=== PATIENT | female | born 1995 | race Caucasian/White ===

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

== ENCOUNTER 2017-02-21 09:37 | Emergency (ER) | payer MEDICAID, OTHER ==
--- NOTE | 2017-02-21 09:59 | ERNOTE ---
Psychological HPI - General Chief Complaint: Psychiatric Problem Source: Reports: patient Exam Limitations: Reports: no limitations - Immun/Allergies/Home Medications Allergies/Adverse Reactions: Allergies amoxicillin [Amoxicillin] Allergy (Severe, Verified 02/21/17 09:44) Hives meloxicam Allergy (Verified 02/21/17 09:44) Home Medications: HOME MEDICATIONS ARIPiprazole [Abilify] 5 mg PO DAILY 02/21/17 [Last Taken Unknown] clonazePAM [Klonopin] 0.25 mg PO BID PRN 02/21/17 [Last Taken Unknown] - History of Present Illness Narrative: Patient states that she has been struggling with depression since the of her son approximately 12 weeks ago. She has been seeing psychiatric services out of [place] and they have started her on several medications which don't seem to be working very well. Patient is frustrated, tearful and out of this generalized state patient took 4 of her 0.5 mg Klonopin she thinks possibly in an attempt to help her with her depression. Patient does not admit to being suicidal however her thinking appears to be somewhat disorganized. Time Seen by Provider: 02/21/17 09:47 Arrived by: Reports: private car Onset/duration: Reports: gradual onset Intent: Reports: no answer Mechanism: Reports: ingestion - more than the prescribed amount of her Klonopin Situational Problems: Reports: other - Associated Symptoms: Reports: depressed Prior Treament: Reports: recently seen, treated by physician Review of Systems - Review of Systems Constitutional: Present: See HPI EYE: Present: no symptoms reported ENT: Present: no symptoms reported Respiratory: Present: no symptoms reported Cardiology: Present: no symptoms reported Gastrointestinal/Abdominal: Present: no symptoms reported Genitourinary: Present: no symptoms reported Musculoskeletal: Present: no symptoms reported Skin: Present: no symptoms reported Neurological: Present: no symptoms reported Endocrine: Present: no symptoms reported Hematologic/Lymphatic: Present: no symptoms reported Psych: Present: See HPI - Patient's Past Medical History Patient History - Medical: No pertinent hx, Other - depression Patient History - Cardiac/Respiratory: Asthma Patient History - Cancer: No Hx of Cancer Patient History - Surgical Procedures: T & A Patient History - Other: None - Family History Mother Family History - Medical: Other Father Family History - Medical: No pertinent hx Family History - Cardiac/Respiratory: Hypertension, Hyperlipidemia - Social History Living Situations: home Abuse History: No History of abuse Psych History: Hx of Depression - Immunizations Immunizations Up to Date: No - unsure Hx Pneumococcal Vaccination: No History of Influenza Vaccine: No Psychological Exam - Exam General Appearance: Present: wd/wn, alert, moderate distress Head Exam: Present: normal inspection, no evidence of injury Neurological: Present: depressed affect Thoughts/Hallucinations: Present: no apparent hallucination Behavior/Eye Contact/Speech: Present: avoids eye contact, other - tearful ENT Exam normal except (see below): Yes Ears, Nose, Throat: Present: normal ENT inspection Neck: Present: normal inspection, nontender Respiratory: Present: no respiratory distress, normal breath sounds, no accessory muscle use, chest nontender, lungs clear Cardiovascular/Chest: Present: regular rate, rhythm, no murmur, normal peripheral pulses Gastrointestinal/Abdominal: Present: normal bowel sounds, nontender, nondistended, soft, no organomegaly Rectal Exam: Present: deferred Pelvic Exam: Present: deferred Back Exam: Present: normal inspection Extremity Exam: Present: normal inspection Skin Exam: Present: normal color Lymphatic Exam: Present: no adenopathy ED Progress - Results and Orders Patient's Lab Results:: I have reviewed the patient's lab results. - Vital Signs Patient's Vital Signs:: I have reviewed the patient's vital signs. Vital Signs: Vital Signs 02/21/17 09:40 Temperature 36.6 C Pulse Rate 108 H Respiratory 12 Rate Blood Pressure 109/69 O2 Sat by Pulse 100 Oximetry - Progress/Reassessment Chief Complaint: Psychiatric Problem Plan - Plan Plan: Patient admits to drinking a fairly large amount of alcohol last night and that appeared to make her depression worse. Patient denies being suicidal and does admit to trying to use alcohol to help with her depression. He had a good discussion with both the patient and her boyfriend who is also the baby daddy and he agrees to stay with the patient today, which will be easy since they live together. Patient will call her psychiatrist tomorrow in [facility] and try to discuss other treatment regimens other than alcohol. Departure Clinical Impression: Post depression Alcohol intoxication Qualifiers: Complication of substance-induced condition: uncomplicated Qualified Code(s): F10.920 - Alcohol use, unspecified with intoxication, uncomplicated - Departure Disposition: Home self-care Condition: Good Instructions: Alcohol Use Disorder, Alcohol Intoxication, [id number], Dysphoria Additional Instructions: Call your psychiatrist in the morning to discuss treatment options
[2017-02-21 10:14] LABS: Hematocrit 41.6 % (37.0-47.0); Hemoglobin 14.1 gm/dL (12.5-16.0); Mean Corpuscular Hemoglobin 29.5 pg (27-31); Mean Corpuscular Hgb Conc 33.9 g/dl (32-36); Neutrophil # 2.8 K/mm3 (1.3-6.0); Platelet Count 212 K/mm3 (150-450); Red Blood Count 4.78 M/mm3 (4.2-5.4); Red Cell Distribution Width 12.7 % (11.5-14.0); White Blood Count 5.6 K/mm3 (4.0-10.5)
[2017-02-21 10:28] LABS: ALT 12 U/L (19-67); AST 12 U/L (0-48); Albumin * 4.2 gm/dl (3.4-5.0); Alkaline Phosphatase * 73 U/L (50-170); Anion Gap 16.5 mmol/L (6.8-13.8); BUN/Creatinine Ratio 10.1 (9.0-21.6); Bilirubin, Total 0.5 mg/dL (0.0-1.1); Blood Urea Nitrogen 7 mg/dL (3-23); Ca. Corrected For Albumin 8.3 mg/dL (8.4-10.2); Calcium * 8.8 mg/dL (7.9-10.9); Carbon Dioxide 25.2 mmol/L (24-32.6); Chloride 108 mmol/L (97-106); Glucose * 89 mg/dL (70-110); Potassium 3.7 mmol/L (3.4-4.6); Salicylate 3.9 mg/dL (2.8-20.0); Sodium 146 mmol/L (132-142); Total Protein 7.1 gm/dL (6.2-8.2)
[2017-02-21 10:37] LABS: Urine Appearance Clear; Urine Color Yellow
[2017-02-21 10:38] LABS: Urine Bacteria None Seen; Urine Bilirubin Negative (NEGATIVE); Urine Blood Negative /ul (NEGATIVE); Urine Ketone Negative (NEGATIVE); Urine Nitrite Negative (NEGATIVE); Urine Protein Negative (NEGATIVE); Urine RBC None Seen /hpf (0-5); Urine Urobilinogen Normal (NORMAL); Urine WBC 0-5 /hpf (0-5)
[2017-02-21 10:44] LABS: Cocaine Ur Negative (NEGATIVE); Urine Barbiturate Negative (NEGATIVE); Urine Benzodiazepines Negative (NEGATIVE); Urine Opiates Negative (NEGATIVE); Urine PCP Negative (NEGATIVE); Urine THC Negative (NEGATIVE)
[2017-02-21 11:07] VITALS: BP 111/63
== END 2017-02-21 11:05 | disposition home or self-care (01) ==
LOC: ER 09:37
DX: F53 Mental and behavioral disorders associated with the puerperium, not elsewhere classified (principal); F10.920 Alcohol use, unspecified with intoxication, uncomplicated
CPT/HCPCS: 36415; 80053; 80307; 81001; 83735; 84703; 85025; 99282; G0480; G0481

== ENCOUNTER 2017-04-04 17:33 | Emergency (ER) | payer SELFPAY ==
[2017-04-04 17:40] VITALS: BP 115/64
[2017-04-04] MEDS ORDERED: PANTOPRAZOLE SODIUM 40 MG in NORMAL SALINE 100 ML IV ONE (17:58)
[2017-04-04 18:00] LABS: Hematocrit 41.6 % (37.0-47.0); Hemoglobin 13.8 gm/dL (12.5-16.0); Mean Cell Volume 86.7 fl (78-100); Mean Corpuscular Hemoglobin 28.8 pg (27-31); Mean Corpuscular Hgb Conc 33.2 g/dl (32-36); Mean Platelet Volume 11.4 fl (6.0-9.5); Neutrophil # 5.4 K/mm3 (1.3-6.0); Neutrophil % 59.2 % (42-75.0); Platelet Count 222 K/mm3 (150-450); White Blood Count 9.1 K/mm3 (4.0-10.5)
--- NOTE | 2017-04-04 18:03 | ERNOTE ---
GI Bleeding/Rectal Pain ER Date of Service: 04/04/17 Presenting Symptoms: rectal bleeding Time Seen by Provider: 04/04/17 17:41 Source: patient Exam Limitations: no limitations Immunizations: IMMUNIZATION HX Immunizations Up to Date No: unsure History of Influenza Vaccine No Hx Pneumococcal Vaccination No Allergies/Adverse Reactions: Allergies amoxicillin [Amoxicillin] Allergy (Severe, Verified 04/04/17 17:40) Hives meloxicam Allergy (Verified 04/04/17 17:40) Home Medications: HOME MEDICATIONS ARIPiprazole [Abilify] 5 mg PO DAILY 02/21/17 [Last Taken Unknown] clonazePAM [Klonopin] 0.25 mg PO BID PRN 02/21/17 [Last Taken Unknown] Narrative: Pt is a 21 year old female who presents with complaints of passing clots per rectum and intermittent abdominal pain which began yesterday evening. She reports she has symptoms like this before 4 years ago and was diagnosed with "ulcers" however no workup was completed such as a EGD or colonoscopy. Her abdominal pain is mid umbilicus and radiates left and right, cramping in nature , and has progressively gotten worse since last night. Nothing makes her pain better, however smoking does make it worse. She also endorses lightheadedness, but denies CP, dysuria, n/v/d, SOB, any episodes of syncope, recent trauma, , denies possible . She did not take anything for her symptoms prior to arrival. Date (Duration): 04/04/17 Time (Timing): 17:53 Timing: getting worse, intermittent Quality/Severity: Present: moderate, cramping Date of Last Bowel Movement: 04/03/17 - streaked with maroon blood and clots present Nausea/Vomiting: Present: blood streaked Abdominal Pain: Present: periumbilical Rectal Bleeding: Present: blood streaks on stool, other - clots Associated Symptoms: Reports: maroon stools, light headedness Prior Treament: Reports: similar symptoms before Review of Systems - Review of Systems Constitutional: Present: fatigue, weight loss ENT: Present: no symptoms reported Respiratory: Present: no symptoms reported Cardiology: Present: no symptoms reported Gastrointestinal/Abdominal: Present: abdominal pain. Absent: nausea, vomiting, diarrhea Genitourinary: Present: no symptoms reported Neurological: Present: dizziness/light-headedness Endocrine: Present: no symptoms reported - Patient's Past Medical History Patient History - Medical: No pertinent hx, Other - "ulcers" per pt Patient History - Cardiac/Respiratory: Asthma Patient History - Cancer: No Hx of Cancer Patient History - Surgical Procedures: T & A Patient History - Other: None - Family History Mother Family History - Medical: Other Father Family History - Medical: No pertinent hx Family History - Cardiac/Respiratory: Hypertension, Hyperlipidemia - Social History Living Situations: home Abuse History: No History of abuse Psych History: Hx of Depression Alcohol Use: none Drug Use: none - Immunizations Immunizations Up to Date: No - unsure Hx Pneumococcal Vaccination: No History of Influenza Vaccine: No Physical Exam - Physical Exam General Appearance: Present: wd/wn, alert, no apparent distress Head Exam: Present: normal inspection, no evidence of injury Respiratory: Present: no respiratory distress, normal breath sounds, no accessory muscle use, chest nontender, lungs clear Cardiovascular/Chest: Present: regular rate, rhythm, no murmur, normal peripheral pulses Gastrointestinal/Abdominal: Present: normal bowel sounds, nontender, nondistended, soft, no organomegaly Back Exam: Present: normal inspection Extremity Exam: Present: normal inspection, non-tender, normal range of motion, no edema Neurological Exam: Present: alert, oriented, normal mood/affect, no motor/ sensory deficits Skin Exam: Present: normal color, warm/dry ED Progress - Results and Orders Patient's Lab Results:: I have reviewed the patient's lab results. - Vital Signs Patient's Vital Signs:: I have reviewed the patient's vital signs. Vital Signs: Vital Signs 04/04/17 04/04/17 17:36 17:41 Temperature 36.3 C L 36.3 C L Pulse Rate 66 66 Respiratory 12 12 Rate Blood Pressure 115/64 115/64 O2 Sat by Pulse 100 100 Oximetry - Progress/Reassessment Chief Complaint: GI Bleed Progress:: Unchanged Progress Note-Subjective: 04/04/17 18:08 Pt refused rectal examination with occult stool testing. Risk and benefits were explained to patient which included unidentifiable rectal bleeding which could results in life threatening hemorrhages. She verbalized understanding. Laboratory findings were unremarkable, h/h stable. Last BM was yesterday evening. Upon my assessment she did not have any abdominal pain. She also refuses to provide a urine sample. Vital signs were stable, there was no evidence of tachycardia or hypotension. She will receive 40mg PO of Protonix prior to DC with instructions to return if symptoms worses and to follow up with her PCP for further testing if problems persist. Departure Clinical Impression: Dizziness GIB (gastrointestinal bleeding) Qualifiers: GI bleed type/associated pathology: unspecified gastrointestinal hemorrhage type Qualified Code(s): K92.2 - Gastrointestinal hemorrhage, unspecified Abdominal pain Qualifiers: Abdominal location: periumbilical Qualified Code(s): R10.33 - Periumbilical pain - Departure Disposition: Home self-care Condition: Good Instructions: Gastrointestinal Bleeding, [id number], Dizziness, [id number] Additional Instructions: You have been diagnosed with a suspected GI bleed. As discussed we cannot fully conclude this due to not completing a rectal examination or testing stool sample for blood. Your laboratory findings do not appear to show that you have had a significant blood loss. Avoid spicy or acidic foods, coffee, and smoking as these can aggravate the intestines. You can take an over the counter PPI to alleviate symptoms Please follow up with you PCP for further work up if pain continues. You have been provided an order for an occult stool you can bring to outpt for further testing. Increase fluid intake. If you experience increased or continued bleeding, chest pain, shortness of breath, or pass out-please come back to ER.
[2017-04-04] MEDS ORDERED: PANTOPRAZOLE SODIUM 40 MG TABLET.EC PO ONE (18:12)
[2017-04-04] MEDS ORDERED: PANTOPRAZOLE SODIUM 40 MG TABLET.EC ONE (18:13)
[2017-04-04 18:14] LABS: Albumin * 3.9 gm/dl (3.4-5.0); Anion Gap 9.8 mmol/L (6.8-13.8); BUN/Creatinine Ratio 10.8 (9.0-21.6); Bilirubin, Total 0.7 mg/dL (0.0-1.1); Ca. Corrected For Albumin 8.7 mg/dL (8.4-10.2); Calcium * 8.9 mg/dL (7.9-10.9); Carbon Dioxide 29.7 mmol/L (24-32.6); Potassium 3.5 mmol/L (3.4-4.6); Total Protein 6.6 gm/dL (6.2-8.2)
[2017-04-04 18:23] LABS: INR 1.2 INR (0.90-1.10); Partial Thrombolplastin Time 29.2 Seconds (24-32)
== END 2017-04-04 18:50 | disposition home or self-care (01) ==
LOC: ER 17:33
DX: K92.2 Gastrointestinal hemorrhage, unspecified (principal); R42 Dizziness and giddiness; R10.33 Periumbilical pain; F32.9 Major depressive disorder, single episode, unspecified

== ENCOUNTER 2018-04-04 01:59 | Inpatient (IN) ==
[2018-04-04] MEDS ORDERED: BETAMETHASONE ACETATE,SOD PHOS 6 MG/ML VIAL IM ONE ×2 (03:16)
[2018-04-04] MEDS ORDERED: TERBUTALINE SULFATE 1 MG/ML VIAL SC ONE (03:16)
[2018-04-04 03:27] LABS: Urine Appearance Clear (CLEAR); Urine Bilirubin Negative (NEGATIVE); Urine Blood Negative /ul (NEGATIVE); Urine Color Yellow; Urine Ketone Negative (NEGATIVE); Urine Specific Gravity <=1.005 SP.GR. (1.005-1.010)
[2018-04-04 03:28] LABS: Urine Bacteria None Seen; Urine Nitrite Negative (NEGATIVE); Urine Protein Negative (NEGATIVE); Urine RBC None Seen /hpf (0-5); Urine Urobilinogen Normal (NORMAL); Urine WBC None Seen /hpf (0-5); Urine pH 6.5 pH (5.0-7.0)
--- NOTE | 2018-04-04 04:33 | HP ---
Chief Complaint - Chief Complaint Date of Service: 04/04/18 Time of Service: 04:15 Chief Complaint: contractions History of Present Illness: Fair historian 22yo at 35 2/7 wks presents to L&D complaining of contractions of increasing frequency and intensity over the past several hours. Upon presentation her cervix was 1/70/ballotable and changed to 2/70/-3 within one hour. SHe continues to contract q 2-3 min with no relief despite one dose of terbutaline 0.25mg. She had a negative GBS culture done on 03/30/18 and received one dose of betamethasone 12mg IM at 0330 today. This complicated by ADHD, anxiety, asthma (uncomplicated), bipolar d/o, depression (sertraline 25mg/d), PTL, tobacco abuse. 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/19/13 Chronic knee pain Onset Date: 01/09/13 with effusion- Left Depression Onset Date: 08/26/12 Oppositional defiant behavior Onset Date: Unknown Patella-femoral syndrome Onset Date: Unknown left Pneumonia Onset Date: ~2001 Thrombocytopenia affecting Onset Date: 08/03/16 Vulvovaginal candidiasis Onset Date: 09/26/12 [place] teeth extracted Onset Date: Unknown Surgical History: Surgical History (Last Reviewed 04/04/18 @ 04:24 by Zeus Buck DO) History of tonsillectomy Onset Date: Unknown Family History: Family History (Last Reviewed 04/04/18 @ 04:24 by Zeus Buck DO) Mother Seasonal allergic rhinitis Father Family history unknown Grandmother COPD (chronic obstructive pulmonary disease) Maternal Endometriosis Maternal Grandfather , Maternal Stage 3 chronic kidney disease COPD (chronic obstructive pulmonary disease) Brother Seasonal allergic rhinitis Asthma Social History: Preferred Language Mauritanian Smoking Status Current every day smoker Abuse History No History of abuse Psych History Hx of Depression,Hx of Bipolar Disorder,Hx of Suicide Attempt (Last Updated 03/31/18 @ 18:10 by Yeimy Greer MD) No Social History Section defined Review Of Systems (GEN) - Review of Systems Generalized/Overall Review: Present: No Symptoms Reported EENTM: Present: No Symptoms Reported Respiratory: Present: No Symptoms Reported Cardiac: Present: No Symptoms Reported Abdominal: Present: Other - contractions Genitourinary: Present: Other - increased vaginal discharge Musculoskeletal: Present: No Symptoms Reported Neurological: Present: Anxiety, Emotional Problems Skin: Present: No Symptoms Reported Endocrine: Present: No Symptoms Reported Immunizations: IMMUNIZATION HX Immunizations Up to Date Yes History of Influenza Vaccine No Hx Pneumococcal Vaccination No Allergies/Adverse Reactions: Allergies Allergy/AdvReac Type Severity Reaction Status Date / Time amoxicillin [Amoxicillin] Allergy Intermediate Hives Verified 03/31/18 14:27 meloxicam Allergy Intermediate Hives Verified 03/31/18 14:27 Home Medications: HOME MEDICATIONS lurasidone 20 mg tablet 20 mg PO QPM #30 tab 11/17/17 [Last Taken 04/02/18 21:00] [id number] 400 mcg-om3 35 mg-dha 25 mg-epa 5 mg-fish oil chewable tablet 2 tab PO DAILY tab 12/14/17 [Last Taken 04/02/18 21:00] sertraline 25 mg tablet 100 mg PO DAILY tab 01/11/18 [Last Taken 04/02/18 21:00] ferrous sulfate 325 mg (65 mg iron) tablet 325 mg PO DAILY #30 tab 02/08/18 [Last Taken 04/02/18 21:00] Exam - Exam Vital Signs: Vital Signs - Last Taken Temp 37.0 C 04/04/18 04:02 Pulse 108 H 04/04/18 04:02 Resp 16 04/04/18 04:02 BP 120/65 04/04/18 04:02 Pulse Ox 100 04/04/18 04:02 Constitutional: Present: Alert, Oriented x3, Cooperative, Mild distress - anxious ENT Exam: Present: hearing grossly normal Breasts: Present: Exam deferred Respiratory: Present: lungs clear, no respiratory distress Cardiovascular/Chest: Present: normal peripheral pulses, regular rate, rhythm, no edema Abdomen: Present: soft, nontender, no rebound tenderness, other - gravid /Rectal: Present: Other - cervix 2/70/-3 Extremity: Present: non-tender, no pedal edema, no calf tenderness Skin Exam: Present: normal color, warm/dry, no cyanosis Lymphatic: Present: no adenopathy Neurologic: Present: alert, oriented x 3, other - anxious Appearance: Present: appropriate appearance, appropriate insight Eye contact: Present: cooperative, good eye contact, normal speech Thoughts: Present: normal thought pattern Diagnostic Studies: Laboratory Results Urine Color Yellow 04/04/18 03:22 Urine Appearance Clear (CLEAR) 04/04/18 03:22 Urine pH 6.5 pH (5.0-7.0) 04/04/18 03:22 Ur Specific [place] <=1.005 SP.GR. (1.005-1.010) 04/04/18 03:22 Urine Protein Negative mg/dL (NEGATIVE) 04/04/18 03:22 Urine Glucose (UA) Negative mg/dL (NEGATIVE) 04/04/18 03:22 Urine Ketones Negative mg/dL (NEGATIVE) 04/04/18 03:22 Urine Blood Negative /ul (NEGATIVE) 04/04/18 03:22 Urine Nitrate Negative (NEGATIVE) 04/04/18 03:22 Urine Bilirubin Negative mg/dl (NEGATIVE) 04/04/18 03:22 Urine Urobilinogen Normal EU/dl (NORMAL) 04/04/18 03:22 Ur Leukocyte Esterase Negative /ul (NEGATIVE) 04/04/18 03:22 Urine RBC None seen /hpf (0-5) 04/04/18 03:22 Urine WBC None seen /hpf (0-5) 04/04/18 03:22 Ur Epithelial Cells Trace /hpf (0-5) 04/04/18 03:22 Urine Bacteria None seen (NONE) 04/04/18 03:22 Bedside ultrasound - cephalic presentation NST reactive Assessment/Plan - Assessment/Plan (1) labor Problem: Acute Qualifiers: labor trimester: third trimester Fetus number: single or unspecified fetus (2) Depression affecting Problem: Acute (3) Bipolar disorder Problem: Acute
[2018-04-04] MEDS ORDERED: DEXTROSE 5%-LACTATED RINGERS 1,000 ML IV PRN (04:41)
[2018-04-04] MEDS ORDERED: NIFEdipine 10 MG CAPSULE PO SCH (05:00)
[2018-04-04 05:02] VITALS: BP 113/55
[2018-04-04 05:14] LABS: Cocaine Ur Negative (NEGATIVE); Urine Barbiturate Negative (NEGATIVE); Urine Benzodiazepines Negative (NEGATIVE); Urine Opiates Negative (NEGATIVE); Urine PCP Negative (NEGATIVE); Urine THC Negative (NEGATIVE)
--- NOTE | 2018-04-04 06:58 | PN ---
Progess Note - Interim Date: 04/04/18 Time: 06:54 Narrative: 04/04/18 06:54 Plan was to transfer patient to [facility] but no ambulance was available for transport. The soonest one available was about 2-3 hours out. By the time one was available patient was 3cm but had stopped ranjana. Recheck one hour later, cervix was 4-5cm. Because of the advanced dilation, multiparous with infant, and rapid changing cervix transport was cancelled. Will manage expectantly, try to get 2nd dose of betamethasone, and notify peds.
[2018-04-05] MEDS ORDERED: BETAMETHASONE ACETATE,SOD PHOS 6 MG/ML VIAL IM ONE (03:30)
== END 2018-04-04 10:40 | disposition left against medical advice (07) | DRG 833 ==
LOC: OB 01:59 → OBCLINIC 01:59
PROVIDERS: ADMIT Obstetrics & Gynecology; ATTEND Obstetrics & Gynecology
CPT/HCPCS: 59025; 80307; 81001

== ENCOUNTER 2018-04-04 21:26 | Inpatient (IN) ==
--- NOTE | 2018-04-04 20:56 | HP ---
Chief Complaint - Chief Complaint Date of Service: 04/04/18 Time of Service: 20:30 Chief Complaint: worsening contractions History of Present Illness: Updated H&P. 22 yo at 35 2/7 wks admitted earlier this am for PTL left late morning (104 5) against medical advise. She called at 1812 complaining of increased pain and frequency of contractions and returned to hospital. She was readmitted and cervical exam remained unchanged from this am (4-5/70/-3). The nurse had trouble picking up FHT so I performed a bedside ultrasound which revealed an intermittent tach-arrhythmia. [facility], Dr. Gina Villa, was consulted and a video clip was sent to her. With the limited information she had, she felt the best thing to do was deliver the baby before it became compromised and so the cinder crane operator could treat the arrhythmia if needed. I discussed the plan with tourist information assistant cinder crane operator, Dr. Michael Nicolas. We will proceed with induction of labor. Transportion of mother/baby to [facility] was again intertained but with her advanced dilation it was felt the safest option was to deliver then transport baby if need be. Air transport is unavailable due to weather conditions. Patient denies using any drugs or medications since leaving AMA this morning other than smoking a couple cigarettes. Repeat UDS obtained. S/P one dose of betamethasone 12mg IM at 0330 this am. Rh positive Rubella immune GBS negative Medical History (Last Reviewed 04/04/18 @ 20:48 by Zeus Buck DO) Anemia affecting (Acute) Onset Date: 02/08/18 ADHD Onset Date: ~2012 Allergic rhinitis Onset Date: Unknown Asthma Onset Date: Unknown exercise induced Body piercing Chlamydia infection Onset Date: ~01/2016 Tattoos Anxiety Onset Date: Unknown Bipolar 1 disorder Onset Date: Unknown Borderline personality disorder Onset Date: Unknown Chondromalacia, patella Onset Date: 01/19/13 Chronic knee pain Onset Date: 01/09/13 with effusion- Left Depression Onset Date: 08/26/12 Oppositional defiant behavior Onset Date: Unknown Patella-femoral syndrome Onset Date: Unknown left Pneumonia Onset Date: ~2001 Thrombocytopenia affecting Onset Date: 08/03/16 Vulvovaginal candidiasis Onset Date: 09/26/12 [place] teeth extracted Onset Date: Unknown Surgical History: Surgical History (Last Reviewed 04/04/18 @ 20:48 by Zeus Buck DO) History of tonsillectomy Onset Date: Unknown Family History: Family History (Last Reviewed 04/04/18 @ 20:48 by Zeus Buck DO) Mother Seasonal allergic rhinitis Father Family history unknown Grandmother COPD (chronic obstructive pulmonary disease) Maternal Endometriosis Maternal Grandfather , Maternal Stage 3 chronic kidney disease COPD (chronic obstructive pulmonary disease) Brother Seasonal allergic rhinitis Asthma Social History: Preferred Language Berm[place]ian Smoking Status Current every day smoker Abuse History No History of abuse Psych History Hx of Depression,Hx of Bipolar Disorder,Hx of Suicide Attempt (Last Updated 03/31/18 @ 18:10 by Yeimy Greer MD) No Social History Section defined Review Of Systems (GEN) - Review of Systems Generalized/Overall Review: Present: No Symptoms Reported EENTM: Present: No Symptoms Reported Respiratory: Present: No Symptoms Reported Cardiac: Present: No Symptoms Reported Abdominal: Present: Other - contractions Genitourinary: Present: Other - vaginal pressure Musculoskeletal: Present: No Symptoms Reported Neurological: Present: No Symptoms Reported Skin: Present: No Symptoms Reported Endocrine: Present: No Symptoms Reported Immunizations: IMMUNIZATION HX Immunizations Up to Date Yes History of Influenza Vaccine No Hx Pneumococcal Vaccination No Allergies/Adverse Reactions: Allergies Allergy/AdvReac Type Severity Reaction Status Date / Time amoxicillin [Amoxicillin] Allergy Intermediate Hives Verified 03/31/18 14:27 meloxicam Allergy Intermediate Hives Verified 03/31/18 14:27 Home Medications: HOME MEDICATIONS lurasidone 20 mg tablet 20 mg PO QPM #30 tab 11/17/17 [Last Taken 04/02/18 21:00] [id number] 400 mcg-om3 35 mg-dha 25 mg-epa 5 mg-fish oil chewable tablet 2 tab PO DAILY tab 12/14/17 [Last Taken 04/02/18 21:00] sertraline 25 mg tablet 100 mg PO DAILY tab 01/11/18 [Last Taken 04/02/18 21:00] ferrous sulfate 325 mg (65 mg iron) tablet 325 mg PO DAILY #30 tab 02/08/18 [Last Taken 04/02/18 21:00] Exam - Exam Vital Signs: T 36.8C, POx 98%, BP 126/70, P 108, R 16 Constitutional: Present: Alert, Oriented x3, Cooperative, Other - Poor historian. History continuously changes Breasts: Present: Exam deferred Respiratory: Present: lungs clear, no respiratory distress Cardiovascular/Chest: Present: regular rate, rhythm Abdomen: Present: soft, nontender, no rebound tenderness, other - gravid /Rectal: Present: Other - Cervix 4-5/70/-3 Extremity: Present: non-tender, no pedal edema, no calf tenderness Skin Exam: Present: normal color, warm/dry, no cyanosis Neurologic: Present: alert, normal mood/affect, oriented x 3 Appearance: Present: appropriate appearance Eye contact: Present: cooperative, good eye contact Thoughts: Present: normal thought pattern, normal mood /affect Diagnostic Studies: UDS results pending Assessment/Plan - Assessment/Plan (1) arrhythmia affecting , antepartum Assessment: Induction of labor. Problem: Acute (2) labor Problem: Acute Qualifiers: labor trimester: third trimester labor delivery status: with delivery in third trimester Fetus number: single or unspecified fetus Qualified Code(s): O60.14X0 - labor third trimester with delivery third trimester, not applicable or unspecified (3) Depression affecting Problem: Acute (4) Bipolar disorder Problem: Chronic Qualifiers: Active/Remission status: in partial remission Most recent bipolar episode type: most recent episode unspecified type Qualified Code(s): F31.70 - Bipolar disorder, currently in remission, most recent episode unspecified (5) Anemia affecting Problem: Acute Qualifiers: Trimester: third trimester Qualified Code(s): O99.013 - Anemia complicating , third trimester
[2018-04-04 21:07] LABS: Cocaine Ur Negative (NEGATIVE); Urine Barbiturate Negative (NEGATIVE); Urine Benzodiazepines Negative (NEGATIVE); Urine Opiates Negative (NEGATIVE); Urine PCP Negative (NEGATIVE); Urine THC Negative (NEGATIVE)
[~2018-04-04 21:26] MED LIST: BUPIVACAINE HCL/0.9 % NACL/PF 250 ML EP PRN; BUPIVACAINE HCL/PF 30 ML VIAL EP SCH; DEXTROSE 5%-LACTATED RINGERS 1,000 ML IV PRN; NALOXONE HCL 1 MG/1 ML SYRG IV PRN; ONDANSETRON HCL/PF 2 MG/ML VIAL IV PRN; OXYTOCIN/DEXTROSE 5%-WATER 30 UNITS/500 ML BAG IV ONE; RINGER'S SOLUTION,LACTATED 1,000 ML IV ONE
--- NOTE | 2018-04-04 21:54 | ANES ---
Anesthesia Pre Procedure Eval Vitals/Labs: Last Vital Signs Temp 36.9 C 04/04/18 21:51 Pulse 92 04/04/18 21:51 Resp 18 04/04/18 21:51 BP 132/63 04/04/18 21:51 Pulse Ox 98 04/04/18 21:51 HOME MEDICATIONS lurasidone 20 mg tablet 20 mg PO QPM #30 tab 11/17/17 [Last Taken 04/02/18 21:00] [id number] 400 mcg-om3 35 mg-dha 25 mg-epa 5 mg-fish oil chewable tablet 2 tab PO DAILY tab 12/14/17 [Last Taken 04/02/18 21:00] sertraline 25 mg tablet 100 mg PO DAILY tab 01/11/18 [Last Taken 04/02/18 21 :00] ferrous sulfate 325 mg (65 mg iron) tablet 325 mg PO DAILY #30 tab 02/08/18 [Last Taken 04/02/18 21:00] Allergies/Adverse Reactions: Allergies Allergy/AdvReac Type Severity Reaction Status Date / Time amoxicillin [Amoxicillin] Allergy Intermediate Hives Verified 03/31/18 14:27 meloxicam Allergy Intermediate Hives Verified 03/31/18 14:27 - Planned Procedure Planned Procedure: Labor epidural Medication List Reviewed:: Yes Allergies Verified: Yes Medical History (Last Reviewed 04/04/18 @ 21:52 by Shahzad Zapien CRNA) Anemia affecting (Acute) Onset Date: 02/08/18 ADHD Onset Date: ~2012 Allergic rhinitis Onset Date: Unknown Asthma Onset Date: Unknown exercise induced Body piercing Chlamydia infection Onset Date: ~01/2016 Tattoos Anxiety Onset Date: Unknown Bipolar 1 disorder Onset Date: Unknown Borderline personality disorder Onset Date: Unknown Chondromalacia, patella Onset Date: 01/19/13 Chronic knee pain Onset Date: 01/09/13 with effusion- Left Depression Onset Date: 08/26/12 Oppositional defiant behavior Onset Date: Unknown Patella-femoral syndrome Onset Date: Unknown left Pneumonia Onset Date: ~2001 Thrombocytopenia affecting Onset Date: 08/03/16 Vulvovaginal candidiasis Onset Date: 09/26/12 [place] teeth extracted Onset Date: Unknown Surgical History (Last Reviewed 04/04/18 @ 21:52 by Shahzad Zapien CRNA) History of tonsillectomy Onset Date: Unknown Family History (Last Reviewed 04/04/18 @ 21:52 by Shahzad Zapien CRNA) Mother Seasonal allergic rhinitis Father Family history unknown Grandmother COPD (chronic obstructive pulmonary disease) Maternal Endometriosis Maternal Grandfather , Maternal Stage 3 chronic kidney disease COPD (chronic obstructive pulmonary disease) Brother Seasonal allergic rhinitis Asthma - Family Anesthesia History Family History:: no untoward family reactions to anesthesia, no familial bleeding tendencies, no family history of clotting disorders, no family history of premature - Respiratory Smoking Status: Current every day smoker - Cardiovascular Tolerate Activity: Good Heart Sounds: S1 & S2 - Anesthesia Assessment and Plan ASA Class: PS, II Anesthesia Type Plan: Epidural
--- NOTE | 2018-04-04 22:16 | ANES ---
Anesthesia Procedure Note Procedure Note: ANESTHESIA PROCEDURE NOTE Date of Procedure: 04/04/2018. Time of procedure: 2200. Performed by: Shahzad Zapien CRNA Business Job Titles: None. Preprocedure diagnosis: Active labor. Post procedure diagnosis: Same. Procedure: Insertion of labor epidural. Indications: The patient is a 22 -year-old female in active labor requesting labor epidural for pain management. Findings: See below. Details of the procedure: The patient was placed in a sitting position. DuraPrep as well as Betadine swabs X3 was applied to the patient's back. Patient was then draped in a sterile fashion. Lidocaine 1% was infiltrated to the skin and subcutaneous tissues at the level of the L3-4 interspace. The epidural space was identified using a 18-gauge Tuohy needle with [id number] technique. Epidural catheter was inserted to a depth of 10 centimeters at skin. Negative test dose was elicited using 3 mL of 1.5% preservative-free lidocaine plus epinephrine 1 200,000. The epidural catheter was then taped and secured in place. A loading dose of 8 mL of 0.25% preservative-free bupivacaine was administered to the epidural catheter after negative aspiration for blood and CSF. EBL: Minimal. Fluids: N/A. Specimen: N/A. Post procedure condition: The patient tolerated the procedure well. No complications were noted. Thank you for this consultation. Shahzad Zapien CRNA
--- NOTE | 2018-04-04 22:16 | ANES ---
Post Anesthesia Assessment - Vital Signs Vitals: Last Vital Signs Temp 37.4 C 04/04/18 22:11 Pulse 87 04/04/18 22:11 Resp 16 04/04/18 22:11 BP 122/64 04/04/18 22:11 Pulse Ox 97 04/04/18 22:11 Airway Patency: Normal - Mental Status Level Of Consciousness: Awake - N/V Assessment Nausea/Vomiting Presence: None Dehydration:: No
--- NOTE | 2018-04-05 01:06 | PN ---
Progess Note - Interim Date: 04/05/18 Time: 01:04 Narrative: 04/05/18 01:04 Patient comfortable with epidural Vital signs stable. Pitocin at 1 mu/min. FHT: 140 baseline, reassuring Contractions q 1-2 min Cervix: 8/70/-2, AROM-clear Impression: Intrauterine at 35-3/7 weeks in labor with augmentation of labor due to arrhythmia Plan: Continue present plan
--- NOTE | 2018-04-05 02:34 | OR ---
Operative Report - Dictated Report Narrative: Spontaneous vaginal delivery of viable female at 0209 on 04/05/2018 with Apgars 8 and 9, weighing 2557 g in ADÁN position with tight nuchal cord 1. Vigorous baby was placed on maternal abdomen, the nuchal cord was reduced, clamped and cut and was handed off to awaiting agency trainer and care team. Placenta delivered complete, intact, with three vessel cord Estimated blood loss: 150 mL Anesthesia: epidural Lacerations: None History for MU Definition: * The number of deliveries resulting in a live the patient experienced prior to current hospitalization * The previous delivery of live twins or any live multiple gestation is considered one live event. *If primagravida or nulliparous is documented select zero for the number of previous live births. Live Events: 1
[2018-04-05] MEDS ORDERED: IBUPROFEN 800 MG TABLET PO PRN (02:42)
[2018-04-05] MEDS ORDERED: SENNOSIDES 8.6 MG TABLET PO PRN (02:42)
[2018-04-05] MEDS ORDERED: OXYTOCIN/DEXTROSE 5%-WATER 30 UNITS/500 ML BAG IV ONE (02:42)
[2018-04-05] MEDS ORDERED: oxyCODONE HCL/ACETAMINOPHEN 1 TAB TABLET PO PRN (02:42)
[2018-04-05] MEDS ORDERED: GLYCERIN/WITCH HAZEL LEAF 40 APPL BOX TP PRN (02:42)
[2018-04-05] MEDS ORDERED: HYDROCORTISONE 30 APPL TUBE TP PRN (02:42)
[2018-04-05] MEDS ORDERED: BENZOCAINE/MENTHOL 81 SPRAY CAN TP PRN (02:42)
[2018-04-05] MEDS ORDERED: BISACODYL 10 MG SUPP.RECT RC PRN (02:42)
[2018-04-05] MEDS ORDERED: BETAMETHASONE ACETATE,SOD PHOS 6 MG/ML VIAL IM ONE (03:30)
[2018-04-05] MEDS: oxyCODONE HCL/ACETAMINOPHEN 1 TAB TABLET PO PRN ×2 (03:43→12:43)
[2018-04-05] MEDS ORDERED: PRENATAL VITS96/IRON FUM/FOLIC 1 TAB TABLET PO SCH (09:00)
[2018-04-05] MEDS ORDERED: DOCUSATE SODIUM 100 MG CAPSULE PO SCH (09:00)
[2018-04-05] MEDS ORDERED: SERTRALINE HCL 100 MG TABLET PO SCH (09:00)
[2018-04-05] MEDS: FERROUS SULFATE 325 MG TABLET PO SCH ×2 (11:38→14:15)
--- NOTE | 2018-04-05 13:15 | PN ---
Subjective - Date and Time Seen Date: 04/05/18 Time: 13:14 Objective - Vitals Vitals: Last Vital Signs Temp 36.6 C 04/05/18 07:43 Pulse 99 04/05/18 07:43 Resp 14 04/05/18 07:43 BP 100/48 04/05/18 07:43 Pulse Ox 99 04/05/18 07:43 Patient complaint and after menstrual cramping. Plans to breast-feed. Lochia wnl Abdomen - soft, nontender Uterus - firm, at umbilicus - 1 No calf tenderness Impression: day #1 - s/p spontaneous vaginal delivery. [facility]ant transferred to [facility] for complications of delivery. Plan: Continue routine care. Early discharge instructions given to patient. Follow-up in the office and the 3-4 weeks. Cauti Physician Documentation - Urinary Catheter Management Urethral (Bob[place]) Date of Insertion: 04/04/18 Time of Insertion: 22:30 Assessment/Plan - Problems/Diagnosis (1) arrhythmia affecting , antepartum Problem: Acute (2) labor Problem: Acute Qualifiers: labor trimester: third trimester labor delivery status: with delivery in third trimester Fetus number: single or unspecified fetus Qualified Code(s): O60.14X0 - labor third trimester with delivery third trimester, not applicable or unspecified (3) Depression affecting Problem: Acute (4) Bipolar disorder Problem: Chronic Qualifiers: Active/Remission status: in partial remission Most recent bipolar episode type: most recent episode unspecified type Qualified Code(s): F31.70 - Bipolar disorder, currently in remission, most recent episode unspecified (5) Anemia affecting Problem: Acute Qualifiers: Trimester: third trimester Qualified Code(s): O99.013 - Anemia complicating , third trimester
[2018-04-05 14:08] VITALS: BP 117/67
[2018-04-05] MEDS ORDERED: LURASIDONE 20 MG PO SCH (17:00)
== END 2018-04-05 14:45 | disposition home or self-care (01) | DRG 807 ==
LOC: OB
PROVIDERS: ADMIT Obstetrics & Gynecology; ATTEND Obstetrics & Gynecology
CPT/HCPCS: 59025; 80307; 88307